=== PATIENT | male | born 1955 | race Caucasian/White ===

== ENCOUNTER 2024-07-27 14:16 | Outpatient (CLI) | payer MEDICARE, BC, SELFPAY | END 2024-07-27 14:17 | disposition home or self-care (01) | PROVIDERS: PCP Family Medicine; Visit Provider Family Medicine | DX: E78.5 Hyperlipidemia, unspecified (principal); R53.83 Other fatigue; Z13.21 Encounter for screening for nutritional disorder; Z12.5 Encounter for screening for malignant neoplasm of prostate | CPT/HCPCS: 80053; 80061; 82607; 84443; G0103 ==

== ENCOUNTER 2024-11-21 09:31 | Outpatient (CLI) | payer MEDICARE, BC, SELFPAY | END 2024-11-21 09:32 | disposition home or self-care (01) | LOC: NFLDREF 11-23 08:09 | PROVIDERS: PCP Family Medicine; Referring Provider Family Medicine; Visit Provider Family Medicine | DX: R97.20 Elevated prostate specific antigen [PSA] (principal) | CPT/HCPCS: 84153 ==

== ENCOUNTER 2025-02-27 08:40 | Outpatient (CLI) | payer MEDICARE, BC, SELFPAY | END 2025-02-27 08:41 | disposition home or self-care (01) | LOC: NFLDREF 03-02 16:08 | PROVIDERS: PCP Family Medicine; Referring Provider Family Medicine; Visit Provider Family Medicine | DX: R97.20 Elevated prostate specific antigen [PSA] (principal) | CPT/HCPCS: 84153 ==